=== PATIENT | male | born 1965 | race Caucasian/White ===

== ENCOUNTER 2019-09-08 19:43 | Observation (INO) ==
[2019-09-08] MEDS ORDERED: EPINEPHrine 1 MG/ML VIAL IM ONE (20:03)
[2019-09-08] MEDS ORDERED: methylPREDNISolone 125 MG/2 ML VIAL IVP ONE (20:03)
[2019-09-08] MEDS ORDERED: Famotidine 20 MG/2 ML VIAL IVP ONE (20:03)
[2019-09-08] MEDS ORDERED: 0.9 % Sodium Chloride 1,000 ML ONE (20:08)
[2019-09-08] MEDS ORDERED: methylPREDNISolone 125 MG/2 ML VIAL ONE (20:08)
[2019-09-08] MEDS ORDERED: Ondansetron 4 MG/2 ML VIAL ONE (20:17)
[2019-09-08 21:12] LABS: Basophils # 0.1 K/mcL (0.0-0.2); Basophils % 0.4 %; Eosinophils # 0.4 K/mcL (0.0-0.6); Eosinophils % 2.4 %; Hematocrit 52.1 % (37.5-50.1); Hemoglobin 16.9 g/dL (12.9-16.9); Immature Granulocytes % 0.8 % (0-4); Lymphocytes # 4.8 K/mcL (0.6-4.6); Lymphocytes % 26.2 %; Mean Corpuscular HGB Conc 32.4 g/dL (31.6-35.5); Mean Corpuscular Hemoglobin 28.8 pg (28.0-33.3); Mean Corpuscular Volume 88.8 fL (83.0-100.0); Mean Platelet Volume 10.9 fL (9.4-12.4); Monocytes # 1.3 K/mcL (0.0-1.3); Monocytes % 7.4 %; Neutrophils # 11.5 K/mcL (1.6-8.9); Platelet Count 509 K/mcL (140-400); Red Blood Count 5.87 M/mcL (4.19-5.50); Red Cell Distribution Width 14.3 % (11.5-14.5); Segmented Neutrophils % 62.8 %; White Blood Count 18.2 K/mcL (4.3-11.1)
[2019-09-08 21:29] LABS: Calcium 8.9 mg/dL (8.6-10.3); Potassium 3.7 mEq/L (3.5-5.1)
[2019-09-08 21:31] LABS: Lipase 65 Units/L (11-82); Troponin I < 0.03 ng/mL (< 0.04)
[2019-09-08] MEDS ORDERED: 0.9 % Sodium Chloride 1,000 ML IV ONE (21:56)
[2019-09-08] MEDS ORDERED: Isovue-370 500 ML BOTTLE IVP ONE (22:15)
[2019-09-08] MEDS ORDERED: Ondansetron 4 MG/2 ML VIAL IVP PRN (23:56)
[2019-09-08] MEDS ORDERED: Naloxone 0.4 MG/ML INJ IVP PRN (23:56)
[2019-09-08] MEDS ORDERED: Dextrose Gel 15 GM/37.5 ML TUBE PO PRN ×2 (23:58)
[2019-09-08] MEDS ORDERED: *HR* Dextrose 50 % in Water (Syg) 50 ML SYRINGE IVP PRN (23:58)
[2019-09-08] MEDS ORDERED: D5% in Water 1,000 ML IVC PRN (23:58)
[2019-09-09 02:43] LABS: Hematocrit 47.4 % (37.5-50.1); Hemoglobin 15.4 g/dL (12.9-16.9); Mean Corpuscular HGB Conc 32.5 g/dL (31.6-35.5); Mean Corpuscular Hemoglobin 28.6 pg (28.0-33.3); Mean Corpuscular Volume 88.1 fL (83.0-100.0); Mean Platelet Volume 10.8 fL (9.4-12.4); Platelet Count 352 K/mcL (140-400); Red Blood Count 5.38 M/mcL (4.19-5.50); Red Cell Distribution Width 14.4 % (11.5-14.5); White Blood Count 24.1 K/mcL (4.3-11.1)
[2019-09-09 03:06] LABS: Alanine Aminotransferase 22 Units/L (7-52); Albumin/Globulin Ratio 1.2 (1.1-2.2); Alkaline Phosphatase 52 Units/L (34-104); Aspartate Amino Transferase 16 Units/L (13-39); BUN/Creatinine Ratio 20 (6-26); Bilirubin,Total 0.4 mg/dL (0.3-1.0); Blood Urea Nitrogen 28 mg/dL (6-20); Calcium 8.8 mg/dL (8.6-10.3); Carbon Dioxide 22 mEq/L (23-29); Chloride 105 mEq/L (98-107); Globulin 3.3 g/dL (2.4-3.5); Glucose 198 mg/dL (70-105); Osmolality,Calculated 295 (280-300); Potassium 4.1 mEq/L (3.5-5.1); Sodium 137 mEq/L (136-145); Total Protein 7.3 g/dL (6.4-8.9); eGFR For African Americans > 60 (> 60); eGFR For Non-African Americans 53 (> 60)
[2019-09-09 03:16] LABS: Large Platelets Present (Not Present); Lymphocytes # 1.5 K/mcL (0.6-4.6); Monocytes # 0.5 K/mcL (0.0-1.3); Neutrophils # 22.2 K/mcL (1.6-8.9); Platelet Estimate Normal (Normal)
[2019-09-09] MEDS ORDERED: Insulin LISPRO 300 UNITS/3 ML VIAL SQ SCH (07:30)
[2019-09-09] MEDS ORDERED: *HR* Glimepiride 4 MG TABLET PO SCH (09:00)
[2019-09-09] MEDS ORDERED: hydroCHLOROthiazide 25 MG TABLET PO SCH (09:00)
[2019-09-09] MEDS ORDERED: *HR* Pioglitazone 30 MG TABLET PO SCH (09:00)
[2019-09-09] MEDS ORDERED: *HR* Metformin 500 MG TABLET PO SCH (09:00)
[2019-09-09] MEDS ORDERED: Aspirin Enteric Coated 81 MG Tablet PO SCH (09:00)
[2019-09-09] MEDS ORDERED: predniSONE 20 MG TABLET PO SCH (09:15)
[2019-09-09 12:22] VITALS: BP 103/74
== END 2019-09-09 12:27 | disposition home or self-care (01) ==
LOC: EMEROOARM 19:43 → CDU 19:43 → SUATTDRO 22:26 → CDU 22:42
PROVIDERS: ADMIT Internal Medicine; ATTEND Internal Medicine

== ENCOUNTER 2019-11-07 12:44 | Observation (INO) ==
[2019-11-07] MEDS ORDERED: EPINEPHrine 1 MG/ML VIAL ONE (13:09)
[2019-11-07] MEDS ORDERED: methylPREDNISolone 125 MG/2 ML VIAL IVP ONE (13:15)
[2019-11-07] MEDS ORDERED: Famotidine 20 MG/2 ML VIAL IVP ONE (13:15)
[2019-11-07] MEDS ORDERED: EPINEPHrine 1 MG/ML VIAL IM ONE (13:15)
[2019-11-07 13:38] LABS: Basophils # 0.1 K/mcL (0.0-0.2); Basophils % 0.5 %; Eosinophils # 0.3 K/mcL (0.0-0.6); Eosinophils % 2.1 %; Hemoglobin 17.6 g/dL (12.9-16.9); Immature Granulocytes % 0.6 % (0-4); Lymphocytes # 2.7 K/mcL (0.6-4.6); Lymphocytes % 18.9 %; Mean Corpuscular HGB Conc 32.6 g/dL (31.6-35.5); Mean Corpuscular Hemoglobin 28.1 pg (28.0-33.3); Mean Corpuscular Volume 86.3 fL (83.0-100.0); Mean Platelet Volume 10.7 fL (9.4-12.4); Monocytes # 0.8 K/mcL (0.0-1.3); Monocytes % 5.4 %; Neutrophils # 10.2 K/mcL (1.6-8.9); Platelet Count 403 K/mcL (140-400); Red Blood Count 6.26 M/mcL (4.19-5.50); Red Cell Distribution Width 15.7 % (11.5-14.5); Segmented Neutrophils % 72.5 %
[2019-11-07 14:05] LABS: Alanine Aminotransferase 26 Units/L (7-52); Albumin 4.1 g/dL (3.5-5.7); Albumin/Globulin Ratio 1.3 (1.1-2.2); Alkaline Phosphatase 60 Units/L (34-104); Aspartate Amino Transferase 19 Units/L (13-39); BUN/Creatinine Ratio 21 (6-26); Bilirubin,Total 0.4 mg/dL (0.3-1.0); Blood Urea Nitrogen 26 mg/dL (6-20); Carbon Dioxide 22 mEq/L (23-29); Chloride 104 mEq/L (98-107); Globulin 3.2 g/dL (2.4-3.5); Glucose 208 mg/dL (70-105); Osmolality,Calculated 301 (280-300); Potassium 3.7 mEq/L (3.5-5.1); Sodium 140 mEq/L (136-145); Total Protein 7.3 g/dL (6.4-8.9); eGFR For African Americans > 60 (> 60); eGFR For Non-African Americans > 60 (> 60)
[2019-11-07] MEDS ORDERED: Ondansetron 4 MG/2 ML VIAL IVP PRN (15:44)
[2019-11-07] MEDS ORDERED: Ketorolac 15 MG/ML VIAL IVP PRN (15:44)
[2019-11-07] MEDS ORDERED: Naloxone 0.4 MG/ML INJ IVP PRN (15:44)
[2019-11-07] MEDS ORDERED: 0.9 % Sodium Chloride 1,000 ML IVC SCH (15:45)
[2019-11-07] MEDS ORDERED: *HR* Dextrose 50 % in Water (Syg) 50 ML SYRINGE IVP PRN (15:58)
[2019-11-07] MEDS ORDERED: D5% in Water 1,000 ML IVC PRN (15:58)
[2019-11-07] MEDS ORDERED: Dextrose Gel 15 GM/37.5 ML TUBE PO PRN ×2 (15:58)
[2019-11-07] MEDS ORDERED: hydroCHLOROthiazide 25 MG TABLET PO SCH (17:30)
[2019-11-07] MEDS ORDERED: MethylPREDNISolone 40 MG/ML VIAL IVP ONE (18:00)
[2019-11-07] MEDS: Famotidine 20 MG/2 ML VIAL IVP SCH (18:05)
[2019-11-07] MEDS: *HR* Heparin 5,000 UNIT/ML VIAL SQ SCH (18:05)
[2019-11-07] MEDS: Insulin LISPRO 300 UNITS/3 ML VIAL SQ SCH (18:06)
[2019-11-07 19:52] LABS: Alanine Aminotransferase 27 Units/L (7-52); Albumin 4.2 g/dL (3.5-5.7); Albumin/Globulin Ratio 1.3 (1.1-2.2); Alkaline Phosphatase 59 Units/L (34-104); Aspartate Amino Transferase 18 Units/L (13-39); BUN/Creatinine Ratio 20 (6-26); Bilirubin,Total 0.4 mg/dL (0.3-1.0); Blood Urea Nitrogen 27 mg/dL (6-20); Carbon Dioxide 22 mEq/L (23-29); Chloride 104 mEq/L (98-107); Globulin 3.3 g/dL (2.4-3.5); Glucose 236 mg/dL (70-105); Osmolality,Calculated 303 (280-300); Potassium 4.2 mEq/L (3.5-5.1); Sodium 140 mEq/L (136-145); Total Protein 7.5 g/dL (6.4-8.9); eGFR For African Americans > 60 (> 60); eGFR For Non-African Americans 56 (> 60)
[2019-11-07] MEDS: Loratadine 10 MG TABLET PO SCH (20:06)
[2019-11-08] MEDS: Insulin LISPRO 300 UNITS/3 ML VIAL SQ SCH ×5 (00:35→23:44)
[2019-11-08 04:27] LABS: Basophils % 0.2 %; Hematocrit 44.6 % (37.5-50.1); Immature Granulocytes % 0.6 % (0-4); Lymphocytes # 1.7 K/mcL (0.6-4.6); Lymphocytes % 9.2 %; Mean Corpuscular HGB Conc 33.4 g/dL (31.6-35.5); Mean Corpuscular Volume 83.8 fL (83.0-100.0); Mean Platelet Volume 10.7 fL (9.4-12.4); Monocytes # 0.5 K/mcL (0.0-1.3); Monocytes % 2.6 %; Neutrophils # 15.9 K/mcL (1.6-8.9); Platelet Count 343 K/mcL (140-400); Red Blood Count 5.32 M/mcL (4.19-5.50); Red Cell Distribution Width 14.9 % (11.5-14.5); Segmented Neutrophils % 87.4 %; White Blood Count 18.2 K/mcL (4.3-11.1)
[2019-11-08 04:28] LABS: Hemoglobin 14.9 g/dL (12.9-16.9)
[2019-11-08] MEDS: Famotidine 20 MG/2 ML VIAL IVP SCH ×2 (05:33→17:15)
[2019-11-08] MEDS: *HR* Heparin 5,000 UNIT/ML VIAL SQ SCH ×2 (05:36→17:15)
[2019-11-08] MEDS ORDERED: EPINEPHrine 1 MG/ML VIAL IM PRN (07:15)
[2019-11-08 08:19] LABS: BUN/Creatinine Ratio 20 (6-26); Blood Urea Nitrogen 23 mg/dL (6-20); Calcium 9.1 mg/dL (8.6-10.3); Carbon Dioxide 24 mEq/L (23-29); Chloride 104 mEq/L (98-107); Glucose 170 mg/dL (70-105); Osmolality,Calculated 302 (280-300); Potassium 4.2 mEq/L (3.5-5.1); Sodium 142 mEq/L (136-145); eGFR For African Americans > 60 (> 60); eGFR For Non-African Americans > 60 (> 60)
[2019-11-08] MEDS: Loratadine 10 MG TABLET PO SCH (08:27)
[2019-11-08] MEDS ORDERED: Aspirin Enteric Coated 81 MG Tablet PO SCH (09:00)
[2019-11-08] MEDS ORDERED: hydroCHLOROthiazide 25 MG TABLET PO SCH (09:00)
[2019-11-08] MEDS ORDERED: predniSONE 20 MG TABLET PO SCH (09:00)
[2019-11-08] MEDS ORDERED: methylPREDNISolone 125 MG/2 ML VIAL IVP ONE (14:15)
[2019-11-08] MEDS: hydrALAZINE 10 MG TABLET PO PRN (17:12)
[2019-11-08] MEDS ORDERED: Loratadine 10 MG TABLET PO SCH (21:00)
[2019-11-09] MEDS: hydrALAZINE 10 MG TABLET PO PRN (00:29)
[2019-11-09] MEDS ORDERED: Naloxone 0.4 MG/ML INJ IVP PRN (02:56)
[2019-11-09] MEDS ORDERED: Insulin LISPRO 300 UNITS/3 ML VIAL SQ SCH ×2 (02:56→07:30)
[2019-11-09] MEDS ORDERED: Ondansetron 4 MG/2 ML VIAL IVP PRN (02:56)
[2019-11-09] MEDS ORDERED: EPINEPHrine 1 MG/ML VIAL IM PRN (02:56)
[2019-11-09] MEDS ORDERED: D5% in Water 1,000 ML IVC PRN (04:06)
[2019-11-09] MEDS ORDERED: *HR* Dextrose 50 % in Water (Syg) 50 ML SYRINGE IVP PRN (04:06)
[2019-11-09] MEDS ORDERED: Dextrose Gel 15 GM/37.5 ML TUBE PO PRN ×2 (04:06)
[2019-11-09] MEDS ORDERED: hydrALAZINE 10 MG TABLET PO PRN (04:07)
[2019-11-09] MEDS ORDERED: Ketorolac 15 MG/ML VIAL IVP PRN (04:08)
[2019-11-09] MEDS ORDERED: Famotidine 20 MG/2 ML VIAL IVP SCH (06:00)
[2019-11-09] MEDS ORDERED: *HR* Heparin 5,000 UNIT/ML VIAL SQ SCH (06:00)
[2019-11-09 06:10] LABS: Basophils % 0.2 %; Hematocrit 44.8 % (37.5-50.1); Hemoglobin 14.7 g/dL (12.9-16.9); Immature Granulocytes % 0.9 % (0-4); Lymphocytes % 10.3 %; Mean Corpuscular HGB Conc 32.8 g/dL (31.6-35.5); Mean Corpuscular Hemoglobin 28.4 pg (28.0-33.3); Mean Corpuscular Volume 86.5 fL (83.0-100.0); Mean Platelet Volume 10.8 fL (9.4-12.4); Monocytes # 1.2 K/mcL (0.0-1.3); Neutrophils # 16.4 K/mcL (1.6-8.9); Platelet Count 336 K/mcL (140-400); Red Blood Count 5.18 M/mcL (4.19-5.50); Red Cell Distribution Width 15.1 % (11.5-14.5); Segmented Neutrophils % 82.6 %; White Blood Count 19.8 K/mcL (4.3-11.1)
[2019-11-09 06:31] LABS: BUN/Creatinine Ratio 22 (6-26); Blood Urea Nitrogen 26 mg/dL (6-20); Calcium 9.3 mg/dL (8.6-10.3); Carbon Dioxide 24 mEq/L (23-29); Chloride 105 mEq/L (98-107); Glucose 166 mg/dL (70-105); Osmolality,Calculated 303 (280-300); Potassium 3.8 mEq/L (3.5-5.1); Sodium 142 mEq/L (136-145); eGFR For African Americans > 60 (> 60); eGFR For Non-African Americans > 60 (> 60)
[2019-11-09] MEDS ORDERED: Aspirin Enteric Coated 81 MG Tablet PO SCH (09:00)
[2019-11-09] MEDS ORDERED: hydroCHLOROthiazide 25 MG TABLET PO SCH (09:00)
[2019-11-09] MEDS ORDERED: Loratadine 10 MG TABLET PO SCH (09:00)
[2019-11-09] MEDS ORDERED: predniSONE 20 MG TABLET PO SCH (09:00)
[2019-11-09 10:31] VITALS: BP 156/86
[2019-11-11 09:58] LABS: ANA IgG by ELISA NONE DETECTED (None Detected)
[2019-11-12 09:51] LABS: C1 Esterase Inhibitor Ag 28 mg/dL (21-39); C1 Esterase Inhibitor, Funct 101 % (>=41)
== END 2019-11-09 11:22 | disposition home or self-care (01) ==
LOC: EMEROOARM 12:44 → ICNU 12:44 → SUATTDRO 15:04 → ICNU 16:40 → 3NENU 11-09 02:38
PROVIDERS: ADMIT Internal Medicine Hospice and Palliative Medicine; ATTEND Internal Medicine